=== PATIENT | male | born 1975 | race Caucasian/White ===

== ENCOUNTER 2019-03-12 13:29 | Emergency (ER) | payer MEDICAID ==
[~2019-03-12] VITALS: Ht 162.6 cm; Wt 88.3 kg
[2019-03-12 13:42] VITALS: BP 200/140
--- NOTE | 2019-03-12 13:42 | NUR ---
PT TAKEN TO ER BED 10
--- NOTE | 2019-03-12 13:42 | NUR ---
AT BEDSIDE. CODE STROKE CALLED.
--- NOTE | 2019-03-12 13:52 | NUR ---
43/M C/O LT SIDED FACIAL DROOP AND LEFT-SIDED WEAKNESS (LT ARM AND LT LEG). LAST KNOWN WELL TIME IS 1130 TODAY. SEVERE WEAKNESS TO LT ARM AND LEG BUT SMALL MOVEMENTS NOTED. LT LEG IS COOL TO TOUCH AND WITH SLOWER CAP REFILL COMPARED TO RT LEG. PT DENIES PAIN, VISION CHANGES. NIH SCORE 11 GCS 15 HX- DENIES
--- NOTE | 2019-03-12 14:04 | NUR ---
PT RETURNED FROM CT
[2019-03-12] MEDS: LABETALOL 100 MG/20 ML VIAL IVP ONE (14:20)
[2019-03-12 14:22] LABS: BASOPHILS # (AUTO) 0.1 K/uL (0.00-0.22); BASOPHILS % (AUTO) 0.3 % (0.0-2.0); EOSINOPHILS % (AUTO) 0.2 % (0.0-4.0); HEMATOCRIT 48.9 % (36-52); HEMOGLOBIN 16.7 g/dL (12.0-18.0); LYMPHOCYTES % (AUTO) 6.8 % (20.5-51.1); MEAN CORPUSCULAR HEMOGLOBIN 31 pg (27-31); MEAN CORPUSCULAR HGB CONC 34 g/dL (33-37); MONOCYTES # (AUTO) 0.8 K/uL (0.8-1.0); MONOCYTES % (AUTO) 5.2 % (1.7-9.3); NEUTROPHILS # (AUTO) 13.2 K/uL (1.8-7.7); NEUTROPHILS % (AUTO) 87.5 % (42.2-75.2); PLATELET COUNT (AUTO) 181 K/uL (140-450); RED BLOOD CELL COUNT(AUTO) 5.37 MIL/uL (4.20-6.10); RED CELL DISTRIBUTION WIDTH 13.3 % (11.6-13.7); WHITE BLOOD COUNT (AUTO) 15.1 K/uL (4.8-10.8)
--- NOTE | 2019-03-12 14:48 | NUR ---
PER DR. FUENTES, TITRATE NICARDIPINE DRIP TO SBP 140S
[2019-03-12] MEDS: NICARDIPINE HYDROCHLORIDE 25 MG in NACL 0.9% 240 ML IV ONE (14:52)
[2019-03-12 14:55] LABS: PROTHROMBIN TIME 9.8 secs (10.8-13.4)
[2019-03-12 14:56] LABS: ALBUMIN 4.2 g/dL (3.4-5.0); ANION GAP 17.1 (8-16); CARBON DIOXIDE 24.1 mmol/L (21-32); POTASSIUM 3.2 mmol/L (3.5-5.1); TOTAL BILIRUBIN 0.6 mg/dL (0.0-1.0)
--- NOTE | 2019-03-12 15:56 | NUR ---
REPORT TO ARNAV MORAN AT [facility]
--- NOTE | 2019-03-12 16:04 | NUR ---
DR. FUENTES DISCUSSING POC WITH PT AND FAMILY MEMBER AT BEDSIDE.
--- NOTE | 2019-03-12 16:20 | NUR ---
[facility] at bedside for pickle sorter to [facility].
--- NOTE | 2019-03-12 16:26 | NUR ---
REPORT TO CARLOS MORAN (TRANSPORT TEAM).
[2019-03-12 16:27] LABS: APPEARANCE,URINE CLEAR (CLEAR); BILIRUBIN,URINE NEGATIVE (NEGATIVE); BLOOD, URINE TRACE-I (NEGATIVE); COLOR,URINE YELLOW (YELLOW); LEUKOCYTE ESTERASE ,URINE NEGATIVE (NEGATIVE); NITRITE, URINE NEGATIVE (NEGATIVE); PH,URINE 5.5 (5.0-9.0); UGLUCOSE NEGATIVE (NEGATIVE)
[2019-03-12 16:28] VITALS: BP 135/84
[2019-03-12 16:35] LABS: RBC,URINE 0-5 /HPF (0-5); URINE AMORPHOUS URATE 1+ /HPF (None Seen); WBC,URINE 0-5 /HPF (0-5)
--- NOTE | 2019-03-14 11:15 | NUR ---
Late entry. Confirmed with RN that Nicardipine IV infusion completed at transfer at 1630
--- NOTE | 2019-03-20 06:25 | NUR ---
Late entry. Confirmed with RN that hopson catheter was placed
== END 2019-03-12 16:20 | disposition short-term general hospital (02) ==
LOC: MED 13:29
DX: I61.3 Nontraumatic intracerebral hemorrhage in brain stem (principal)
CPT/HCPCS: 36415; 70450; 71045; 80053; 81001; 84484; 85025; 85610; 85730; 86886; 86900; 86901; 93005; 96374; 99285; C1758; J3490; J7030; Q0092; 51702; 96365; 96366; 96375